=== PATIENT | female | born 1955 | race Caucasian/White ===

== ENCOUNTER 2017-03-18 12:50 | Emergency (ER) | payer BC ==
--- NOTE | 2017-03-18 14:40 | ED CLINICAL REPORT ---
Clinical Report - Physicians/Mid Levels [facility] [address] [place] [address] 03/18/2017 12:51 Patient: SIMA HAMILTON Time Seen: 13:30 Mar 18 2017. Arrived- By private vehicle. Historian- patient. HISTORY OF PRESENT ILLNESS Chief Complaint: FALL. Location of injuries- (right chest/ posterior). 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 Fell. The patient complains of mild pain. No blow to the head, neck pain or loss of consciousness. (Patient fell from a ladder about 7 days previously, now with pain to the right side after twisting and turning while placing the phone down. Patient reports she has had the same pain since the fall, however worsened today. Reports difficulty with taking large inspirations. Denies a cough or any new fevers. Patient reports taking aspirin for pain. Patient denies any LOC or any other injuries. She has been ambulatory. This is worsening of current pain, not new pain. No shortness of breath, fevers or cough. No palpitations.). REVIEW OF SYSTEMS No hearing loss, weakness or headache. She has had chest pain. All systems otherwise negative, except as recorded above. SOCIAL HISTORY Former smoker. Occasional alcohol use. No drug use. ADDITIONAL NOTES The nursing notes have been reviewed. PHYSICAL EXAM Vital Signs: 03/18/2017 12:57 BP: 125/86. HR: 88. RR: 18. O2 saturation: 98%. Temp: 98.1 F. Pain level now: 10. Appearance: Patient on a backboard. Alert. No acute distress. Eyes: Pupils equal, round and reactive to light. Neck: Painless ROM. Non-tender. No vertebral tenderness. CVS: Heart sounds normal. Pulses normal. Respiratory: No respiratory distress. Chest wall injury: moderate tenderness and small ecchymosis located in the central and posterior chest. No swelling. No abrasion. Back: No tenderness. ROM normal. No tenderness or vertebral point tenderness. LABS, X-RAYS, AND EKG Chest X-ray: (IMPRESSION: 1. There is an acute fracture the right posterior lateral ninth rib. 2. Mild left basilar atelectasis/volume loss (opposite side of rib fracture). 3. Findings as with PAULINA Moody. Electronically Final signed by:Kavin Villalba MD 03/18/2017 2:37:01 PM). PROGRESS AND PROCEDURES Course of Care: patient with good O2 sat in the emergency department. Very stable. All palpation. No distress. Signs of acute fracture, patient has a spirometer at home, urged to use his, strict return precautions. No other injuries. NO other injuries. 03/18/2017 12:57 BP: 125/86. HR: 88. RR: 18. O2 saturation: 98%. Temp: 98.1 F. Pain level now: 08/24. Patient is stable. Symptoms better. Patient/family counseled. Disposition: Discharged. CLINICAL IMPRESSION Single right rib fracture. INSTRUCTIONS Apply ice. Do not work for six days. Prescription Medications: Hydrocodone/APAP 5mg / 325mg: take 1 orally every 6 hours as needed for pain. Dispense twenty (20). No refill. Ibuprofen 800 mg tablets: take 1 tablet orally every 8 hours for 3 days, as needed for pain. Dispense ten (10). No refill. Follow-up: Follow up with your doctor Wednesday. (Electronically signed by Isidra Kimbrough P.A.-C 03/18/2017 14:56)
--- NOTE | 2017-03-18 14:40 | ED ORDER SUMMARY ---
..... Patient: SIMA HAMILTON OrderSheet [facility] VisitID: [id number] [address] [place] [address] 61y, F Registration Date/Time: 03/18/2017 ORDER SHEET Weight: 63.5 kg (stated) Allergies: Nitrofurantoin, Sulfa Antibiotics, Eggs or Egg-derived Products, Flagyl GENERAL ORDERS: Ribs Unilat w PA Chest Right Urgent (13:13 03/18/2017 Sonali Sebastian) (Ack 13:15 IJurca ER Tech1) (15:51 Flaco R.N.) MEDICATION ORDERS: Hydrocodone-APAP PO 5/325 mg (NOW, HIGH ALERT MEDICATION) (13:36 03/18/2017 Sonali Sebastian) (13:38 Latia R.N.) IV FLUIDS: ORDER SHEET NOTES: [Electronically signed by Isidra Kimbrough P.A.-C (14:56 03/18/2017)] [Electronically signed by Ayana Edwards R.N. (15:51 03/18/2017)] [Electronically locked/signed by Ayana Edwards R.N. (15:51 03/18/2017)]
--- NOTE | 2017-03-18 14:40 | ED NURSING NOTES ---
Clinical Report - Nurses [facility] [address] [place] [address] 03/18/2017 12:51 Patient: SIMA HAMILTON TRIAGE Triage time 12:57. Acuity: LEVEL 3. Chief Complaint: CHEST PAIN. Alert. --13:07 Ayana Edwards R.N. 12:57 03/18/17. BP: 125/86. HR: 88. RR: 18. O2 saturation: 98% on room air. Temp: 98.1 F (oral). Pain level now: 08/24. --13:07 Ayana Edwards R.N. Weight: 63.5 kg stated. Height/Length: 62 inches Per Patient. BMI: 25.6. --13:05 Ayana Edwards R.N. Medications None. --13:00 Ayana Edwards R.N. Medication/allergy information source: the patient. --13:07 Ayana Edwards R.N. Allergies Nitrofurantoin. Sulfa Antibiotics. --13:01 Ayana Edwards R.N. Eggs or Egg-derived Products. Flagyl. --13:01 Ayana Edwards R.N. History Arrived by private vehicle. Historian: patient. Accompanied by family. Primary physician (Crystal). Onset. (about 1 week ago). Describes the quality as sharp and (intermittent). Relates location as in the back (right lower ribs). Notes pain level as 10/10 on arrival and at maximum. Provoking / relieving factors: worsened by movement and deep breaths; relieved by rest. ( fell about a week ago, was getting better then today "twisted" to hang up the phone and now having severe right side back,). No difficulty breathing, sweating episodes, nausea or vomiting. PAST MEDICAL HX: The patient is post-menopausal. SOCIAL HX: Former smoker. Alcohol use; consumes wine occasionally. No drug use. FALL RISK ASSESSMENT: Fall risk assessment completed. No fall risk identified. FUNCTIONAL ASSESSMENT: Functional assessment: no impairments noted. LEARNING NEEDS ASSESSMENT: The learning needs assessment revealed no barriers. --13:07 Ayana Edwards R.N. PROBLEMS: Vertigo. --13:03 Ayana Edwards R.N. ADDITIONAL SURGERIES: Breast Biopsy. --13:03 Ayana Edwards R.N. Assessment GENERAL / NEURO / PSYCH: The patient is awake and alert, is oriented and cooperative and appears uncomfortable. She has good eye contact. RESPIRATORY: ( pain increases with deep breaths). SKIN: Skin is warm and dry. --13:07 Ayana Edwards R.N. Interventions ID and allergy band on patient. To treatment room. --13:07 Ayana Edwards R.N. PHYSICAL ASSESSMENT 13:00. Ambulatory to room. Patient gowned. GENERAL / NEURO / PSYCH: The patient is awake and alert, is oriented and cooperative and appears uncomfortable. She has good eye contact. RESPIRATORY: Respirations not labored. SKIN: Skin is warm and dry. --14:18 Ayana Edwards R.N. NURSING PROGRESS NOTES 13:38 03/18/2017 Hydrocodone-APAP (Hydrocodone-Acetaminophen) PO 5/325 mg Tablets 1 tab given. Confirmed 5 rights and sedative warning given. --13:38 Sheryl Painter R.N. 13:00. Patient gowned. Head of bed elevated. Call light placed in reach. Side rails up x 1. Bed placed in lowest position. Brakes of bed on. --14:18 Ayana Edwards R.N. 14:18 03/18/17. The patient is resting quietly. Overall patient status is the same- she states feels the same (tearful). RESPIRATORY: No respiratory distress. SKIN: Skin is warm and dry. --14:18 Ayana Edwards R.N. 14:50. The patient is calm and resting quietly. Overall patient status is the same- she states feels the same (waiting for RT to bring incentive spirometer for home use). RESPIRATORY: No respiratory distress. SKIN: Skin is warm and dry. --15:47 Ayana Edwards R.N. DISPOSITION / DISCHARGE Departure time: 1450. Condition at departure: stable. No learning barriers present. Discharge instructions provided and reviewed with the patient. Reviewed medication(s). Prescription(s) given to the patient. Work note given. Patient verbalized understanding. Written instructions provided in Chadian. The patient was discharged home and accompanied by family. She left the Emergency Department ambulatory and via private vehicle. FALL RISK ASSESSMENT: Fall risk assessment completed. No fall risk identified. --15:51 Ayana Edwards R.N. 14:50 03/18/17. BP: 127/84. HR: 82. RR: 18. O2 saturation: 99% on room air. Pain level now: 08/24. --15:51 Ayana Edwards R.N. Locked/Released at 03/18/2017 15:51 by Ayana Edwards R.N.
--- NOTE | 2017-03-18 14:40 | ED ORDER SUMMARY ---
..... Patient: SIMA HAMILTON OrderSheet [facility] VisitID: [id number] [address] [place] [address] 61y, F Registration Date/Time: 03/18/2017 ORDER SHEET Weight: 63.5 kg (stated) Allergies: Nitrofurantoin, Sulfa Antibiotics, Eggs or Egg-derived Products, Flagyl GENERAL ORDERS: Ribs Unilat w PA Chest Right Urgent (13:13 03/18/2017 Sonali Sebastian) (Ack 13:15 IJurca ER Tech1) (15:51 Flaco R.N.) MEDICATION ORDERS: Hydrocodone-APAP PO 5/325 mg (NOW, HIGH ALERT MEDICATION) (13:36 03/18/2017 Sonali Sebastian) (13:38 Latia R.N.) IV FLUIDS: ORDER SHEET NOTES: [Electronically signed by Isidra Kimbrough P.A.-C (14:56 03/18/2017)] [Electronically signed by Ayana Edwards R.N. (15:51 03/18/2017)] [Electronically locked/signed by Ayana Edwards R.N. (15:51 03/18/2017)]
--- NOTE | 2017-03-18 14:40 | ED CLINICAL REPORT ---
Clinical Report - Physicians/Mid Levels [facility] [address] [place] [address] 03/18/2017 12:51 Patient: SIMA HAMILTON Time Seen: 13:30 Mar 18 2017. Arrived- By private vehicle. Historian- patient. HISTORY OF PRESENT ILLNESS Chief Complaint: FALL. Location of injuries- (right chest/ posterior). 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 The patient complains of mild pain. No blow to the head, neck pain or loss of consciousness. (Patient fell from a ladder about 7 days previously, now with pain to the right side after twisting and turning while placing the phone down. Patient reports she has had the same pain since the fall, however worsened today. Reports difficulty with taking large inspirations. Denies a cough or any new fevers. Patient reports taking aspirin for pain. Patient denies any LOC or any other injuries. She has been ambulatory. This is worsening of current pain, not new pain. No shortness of breath, fevers or cough. No palpitations.). REVIEW OF SYSTEMS No hearing loss, weakness or headache. She has had chest pain. All systems otherwise negative, except as recorded above. SOCIAL HISTORY Former smoker. Occasional alcohol use. No drug use. ADDITIONAL NOTES The nursing notes have been reviewed. PHYSICAL EXAM Vital Signs: 03/18/2017 12:57 BP: 125/86. HR: 88. RR: 18. O2 saturation: 98%. Temp: 98.1 F. Pain level now: 10. Appearance: Patient on a backboard. Alert. No acute distress. Eyes: Pupils equal, round and reactive to light. Neck: Painless ROM. Non-tender. No vertebral tenderness. CVS: Heart sounds normal. Pulses normal. Respiratory: No respiratory distress. Chest wall injury: moderate tenderness and small ecchymosis located in the central and posterior chest. No swelling. No abrasion. Back: No tenderness. ROM normal. No tenderness or vertebral point tenderness. LABS, X-RAYS, AND EKG Chest X-ray: (IMPRESSION: 1. There is an acute fracture the right posterior lateral ninth rib. 2. Mild left basilar atelectasis/volume loss (opposite side of rib fracture). 3. Findings as with PAULINA Moody. Electronically Final signed by:Kavin Villalba MD 03/18/2017 2:37:01 PM). PROGRESS AND PROCEDURES Course of Care: patient with good O2 sat in the emergency department. Very stable. All palpation. No distress. Signs of acute fracture, patient has a spirometer at home, urged to use his, strict return precautions. No other injuries. NO other injuries. 03/18/2017 12:57 BP: 125/86. HR: 88. RR: 18. O2 saturation: 98%. Temp: 98.1 F. Pain level now: 08/24. Patient is stable. Symptoms better. Patient/family counseled. Disposition: Discharged. CLINICAL IMPRESSION Single right rib fracture. INSTRUCTIONS Apply ice. Do not work for six days. Prescription Medications: Hydrocodone/APAP 5mg / 325mg: take 1 orally every 6 hours as needed for pain. Dispense twenty (20). No refill. Ibuprofen 800 mg tablets: take 1 tablet orally every 8 hours for 3 days, as needed for pain. Dispense ten (10). No refill. Follow-up: Follow up with your doctor Wednesday. (Electronically signed by Isidra Kimbrough P.A.-C 03/18/2017 14:56)
--- NOTE | 2017-03-18 14:41 | DIAGNOSTIC IMAGING REPORT ---
PROCEDURE: XR RIBS UNILAT W/PA CHEST-RT INDICATION: Right rib pain after left injury. TECHNIQUE: Two views of the right ribs with single PA view chest. COMPARISON: None. FINDINGS: RIGHT RIBS: There is an acute minimally displaced fracture of the right posterior lateral right ninth rib. The rest the osseous structures are normal. CHEST: There is mild left basilar volume loss (opposite side of the rib fracture). Right lung is clear. No evidence of pneumothorax. Heart mediastinum are normal. The rest of the osseous thorax is normal. IMPRESSION: 1. There is an acute fracture the right posterior lateral ninth rib. 2. Mild left basilar atelectasis/volume loss (opposite side of rib fracture). 3. Findings as with Nicole Kimbrough PAC.
--- NOTE | 2017-03-18 15:51 | ED MAR SUMMARY ---
..... Medication Administration Record [facility] [address] [place] [address] Patient: SIMA HAMILTON Visit ID: [id number] 61y, F Weight: 63.5 kg Height/Length: 62 in BMI: 25.6 ALLERGIES: Eggs or Egg-derived Products, Flagyl, Sulfa Antibiotics, Nitrofurantoin Given 13:38 03/18/2017 Sheryl Painter R.N. Medication Administered: HYDROCODONE-APAP [PO] (HYDROCODONE-ACETAMINOPHEN), Dose: 1 tab 5/325 mg Tablets PO. Medication Ordered: Hydrocodone-APAP PO 5/325 mg (NOW, HIGH ALERT MEDICATION).
--- NOTE | 2017-03-18 15:51 | ED MAR SUMMARY ---
..... Medication Administration Record [facility] [address] [place] [address] Patient: SIMA HAMILTON Visit ID: [id number] 61y, F Weight: 63.5 kg Height/Length: 62 in BMI: 25.6 ALLERGIES: Eggs or Egg-derived Products, Flagyl, Sulfa Antibiotics, Nitrofurantoin Given 13:38 03/18/2017 Sheryl Painter R.N. Medication Administered: HYDROCODONE-APAP [PO] (HYDROCODONE-ACETAMINOPHEN), Dose: 1 tab 5/325 mg Tablets PO. Medication Ordered: Hydrocodone-APAP PO 5/325 mg (NOW, HIGH ALERT MEDICATION).
--- NOTE | 2017-03-18 15:51 | ED MED RECONCILIATION SUMMARY ---
Patient: SIMA HAMILTON Medication Reconciliation Report [facility] VisitID: [id number] [address] [place] [address] 61y, F Registration Date/Time: 03/18/2017 Weight: 63.5 kg Height/Length: 62 in. BMI: 25.6 ALLERGIES: Eggs or Egg-derived Products, Flagyl, Nitrofurantoin, Sulfa Antibiotics The patient's Home Medications are listed below: NONE. The source(s) of the original Home Medication information: patient The following Medications were given to the patient in the Emergency Department: Hydrocodone-APAP [PO] PO 1 tab, administered: 03/18/2017 1:38:00 PM The following Medications were prescribed to the patient: Hydrocodone/APAP 5mg / 325mg: take 1 orally every 6 hours as needed for pain. Dispense twenty (20). No refill. -- Isidra Kimbrough, P.A.-C Ibuprofen 800 mg tablets: take 1 tablet orally every 8 hours for 3 days, as needed for pain. Dispense ten (10). No refill. -- Isidra Kimbrough, P.A.-C
--- NOTE | 2017-03-18 15:51 | ED MED RECONCILIATION SUMMARY ---
Patient: SIMA HAMILTON Medication Reconciliation Report [facility] VisitID: [id number] [address] [place] [address] 61y, F Registration Date/Time: 03/18/2017 Weight: 63.5 kg Height/Length: 62 in. BMI: 25.6 ALLERGIES: Eggs or Egg-derived Products, Flagyl, Nitrofurantoin, Sulfa Antibiotics The patient's Home Medications are listed below: NONE. The source(s) of the original Home Medication information: patient The following Medications were given to the patient in the Emergency Department: Hydrocodone-APAP [PO] PO 1 tab, administered: 03/18/2017 1:38:00 PM The following Medications were prescribed to the patient: Hydrocodone/APAP 5mg / 325mg: take 1 orally every 6 hours as needed for pain. Dispense twenty (20). No refill. -- Isidra Kimbrough, P.A.-C Ibuprofen 800 mg tablets: take 1 tablet orally every 8 hours for 3 days, as needed for pain. Dispense ten (10). No refill. -- Isidra Kimbrough, P.A.-C
--- NOTE | 2017-03-18 15:51 | ED DISCHARGE INSTRUCTIONS ---
Patient: SIMA HAMILTON General Instructions [facility] VisitID: [id number] [place] [address] 61y, F Registration Date/Time: 03/18/2017 Single right rib fracture. INSTRUCTIONS Apply ice. Do not work for six days. Prescription Medications: Hydrocodone/APAP 5mg / 325mg: take 1 orally every 6 hours as needed for pain. Dispense twenty (20). No refill. Ibuprofen 800 mg tablets: take 1 tablet orally every 8 hours for 3 days, as needed for pain. Dispense ten (10). No refill. Follow-up: Follow up with your doctor Wednesday. ADDITIONAL INFORMATION Rib Fracture You have a fracture (break) of one or more ribs. Rib fractures do not require a cast like other bones. They will heal by themselves in about 4-6 weeks. The first 3-4 weeks will be the most painful because deep breathing, coughing or changing position from sitting to lying down, may cause the broken ends to move slightly. Home Care: Rest. You should not be doing any heavy lifting or strenuous exertion until the pain goes away. Because it hurts to breathe when you have a broken rib, there is risk of getting pneumonia from poor airflow through your lungs. To prevent this: Take four very deep breaths at least four times a day (exhale through pursed lips as if you are blowing up a balloon). If an "incentive spirometer" (breathing exercise device) was given to you, use it at least four times a day, or as directed. Apply an ice pack (ice cubes in a plastic bag, wrapped in a towel) over the injured area for 20 minutes every 1-2 hours the first day. Continue with ice packs 3-4 times a day for the next two days, then as needed for the relief of pain and swelling. You may use acetaminophen (Tylenol) or ibuprofen (Motrin, Advil) to control pain, unless another pain medicine was prescribed. [NOTE: If you have chronic liver or kidney disease or ever had a stomach ulcer or GI bleeding, talk with your doctor before using these medicines.] If your pain is not controlled by the treatment given, contact your doctor. Sometimes a stronger pain medicine may be needed. A nerve block (numbing the nerve between the ribs) can be performed in case of severe pain. Follow Up with your doctor during the next week, or as advised. Rarely, a broken rib will cause complications within the first few days that may not be evident during your initial exam (such as, collapsed lung, bleeding around the lung or into the abdomen, or pneumonia). Therefore, watch for the signs below. [NOTE: If x-rays were taken, they will be reviewed by a radiologist. You will be notified of any new findings that may affect your care.] Get Prompt Medical Attention if any of the following occur: Shortness of breath Increasing chest pain with breathing Dizziness, weakness or fainting New or worsening abdominal pain Fever of 100.4F (38C) or higher, or as directed by your healthcare provider Congested cough Hydrocodone Bitartrate, Acetaminophen Oral tablet What is this medicine? ACETAMINOPHEN; HYDROCODONE (a set a CHIKA eusebio fen; josué droe KOE done) is a pain reliever. It is used to treat mild to moderate pain. How should I use this medicine? Take this medicine by mouth. Swallow it with a full glass of water. Follow the directions on the prescription label. If the medicine upsets your stomach, take the medicine with food or milk. Do not take more than you are told to take. Talk to your shrimp peeling machine tender regarding the use of this medicine in children. This medicine is not approved for use in children. What side effects may I notice from receiving this medicine? Side effects that you should report to your doctor or health customer care representative as soon as possible: allergic reactions like skin rash, itching or hives, swelling of the face, lips, or tongue breathing problems confusion feeling faint or lightheaded, falls stomach pain yellowing of the eyes or skin Side effects that usually do not require medical attention (report to your doctor or health customer care representative if they continue or are bothersome): nausea, vomiting stomach upset What may interact with this medicine? alcohol antihistamines isoniazid medicines for depression, anxiety, or psychotic disturbances medicines for sleep muscle relaxants naltrexone narcotic medicines (opiates) for pain phenobarbital ritonavir tramadol What if I miss a dose? If you miss a dose, take it as soon as you can. If it is almost time for your next dose, take only that dose. Do not take double or extra doses. Where should I keep my medicine? Keep out of the reach of children. This medicine can be abused. Keep your medicine in a safe place to protect it from theft. Do not share this medicine with anyone. Selling or giving away this medicine is dangerous and against the law. Store at room temperature between 15 and 30 degrees C (59 and 86 degrees F). Protect from light. Keep container tightly closed. Throw away any unused medicine after the expiration date. Discard unused medicine and used packaging carefully. Pets and children can be harmed if they find used or lost packages. What should I tell my health care provider before I take this medicine? They need to know if you have any of these conditions: brain tumor Crohn's disease, inflammatory bowel disease, or ulcerative colitis drink more than 3 alcohol-containing drinks per day drug abuse or addiction head injury heart or circulation problems kidney disease or problems going to the bathroom liver disease lung disease, asthma, or breathing problems an unusual or allergic reaction to acetaminophen, hydrocodone, other opioid analgesics, other medicines, foods, dyes, or preservatives or trying to get breast-feeding What should I watch for while using this medicine? Tell your doctor or health customer care representative if your pain does not go away, if it gets worse, or if you have new or a different type of pain. You may develop tolerance to the medicine. Tolerance means that you will need a higher dose of the medicine for pain relief. Tolerance is normal and is expected if you take the medicine for a long time. Do not suddenly stop taking your medicine because you may develop a severe reaction. Your body becomes used to the medicine. This does NOT mean you are addicted. Addiction is a behavior related to getting and using a drug for a non-medical reason. If you have pain, you have a medical reason to take pain medicine. Your doctor will tell you how much medicine to take. If your doctor wants you to stop the medicine, the dose will be slowly lowered over time to avoid any side effects. You may get drowsy or dizzy when you first start taking the medicine or change doses. Do not drive, use machinery, or do anything that may be dangerous until you know how the medicine affects you. Stand or sit up slowly. There are different types of narcotic medicines (opiates) for pain. If you take more than one type at the same time, you may have more side effects. Give your health care provider a list of all medicines you use. Your doctor will tell you how much medicine to take. Do not take more medicine than directed. Call emergency for help if you have problems breathing. The medicine will cause constipation. Try to have a bowel movement at least every 2 to 3 days. If you do not have a bowel movement for 3 days, call your doctor or health customer care representative. Too much acetaminophen can be very dangerous. Do not take Tylenol (acetaminophen) or medicines that contain acetaminophen with this medicine. Many non-prescription medicines contain acetaminophen. Always read the labels carefully. You have been given the following additional information: Fracture, Rib Hydrocodone Bitartrate, Acetaminophen Oral tablet Do not work for six days. (Electronically signed by Isidra Kimbrough P.A.-C 03/18/2017 14:56)
--- NOTE | 2017-03-18 15:51 | ED DISCHARGE INSTRUCTIONS ---
Patient: SIMA HAMILTON General Instructions [facility] VisitID: [id number] [place] [address] 61y, F Registration Date/Time: 03/18/2017 Single right rib fracture. INSTRUCTIONS Apply ice. Do not work for six days. Prescription Medications: Hydrocodone/APAP 5mg / 325mg: take 1 orally every 6 hours as needed for pain. Dispense twenty (20). No refill. Ibuprofen 800 mg tablets: take 1 tablet orally every 8 hours for 3 days, as needed for pain. Dispense ten (10). No refill. Follow-up: Follow up with your doctor Wednesday. ADDITIONAL INFORMATION Rib Fracture You have a fracture (break) of one or more ribs. Rib fractures do not require a cast like other bones. They will heal by themselves in about 4-6 weeks. The first 3-4 weeks will be the most painful because deep breathing, coughing or changing position from sitting to lying down, may cause the broken ends to move slightly. Home Care: Rest. You should not be doing any heavy lifting or strenuous exertion until the pain goes away. Because it hurts to breathe when you have a broken rib, there is risk of getting pneumonia from poor airflow through your lungs. To prevent this: Take four very deep breaths at least four times a day (exhale through pursed lips as if you are blowing up a balloon). If an "incentive spirometer" (breathing exercise device) was given to you, use it at least four times a day, or as directed. Apply an ice pack (ice cubes in a plastic bag, wrapped in a towel) over the injured area for 20 minutes every 1-2 hours the first day. Continue with ice packs 3-4 times a day for the next two days, then as needed for the relief of pain and swelling. You may use acetaminophen (Tylenol) or ibuprofen (Motrin, Advil) to control pain, unless another pain medicine was prescribed. [NOTE: If you have chronic liver or kidney disease or ever had a stomach ulcer or GI bleeding, talk with your doctor before using these medicines.] If your pain is not controlled by the treatment given, contact your doctor. Sometimes a stronger pain medicine may be needed. A nerve block (numbing the nerve between the ribs) can be performed in case of severe pain. Follow Up with your doctor during the next week, or as advised. Rarely, a broken rib will cause complications within the first few days that may not be evident during your initial exam (such as, collapsed lung, bleeding around the lung or into the abdomen, or pneumonia). Therefore, watch for the signs below. [NOTE: If x-rays were taken, they will be reviewed by a radiologist. You will be notified of any new findings that may affect your care.] Get Prompt Medical Attention if any of the following occur: Shortness of breath Increasing chest pain with breathing Dizziness, weakness or fainting New or worsening abdominal pain Fever of 100.4F (38C) or higher, or as directed by your healthcare provider Congested cough Hydrocodone Bitartrate, Acetaminophen Oral tablet What is this medicine? ACETAMINOPHEN; HYDROCODONE (a set a CHIKA eusebio fen; josué droe KOE done) is a pain reliever. It is used to treat mild to moderate pain. How should I use this medicine? Take this medicine by mouth. Swallow it with a full glass of water. Follow the directions on the prescription label. If the medicine upsets your stomach, take the medicine with food or milk. Do not take more than you are told to take. Talk to your general surgeon regarding the use of this medicine in children. This medicine is not approved for use in children. What side effects may I notice from receiving this medicine? Side effects that you should report to your doctor or health acute care surgeon as soon as possible: allergic reactions like skin rash, itching or hives, swelling of the face, lips, or tongue breathing problems confusion feeling faint or lightheaded, falls stomach pain yellowing of the eyes or skin Side effects that usually do not require medical attention (report to your doctor or health acute care surgeon if they continue or are bothersome): nausea, vomiting stomach upset What may interact with this medicine? alcohol antihistamines isoniazid medicines for depression, anxiety, or psychotic disturbances medicines for sleep muscle relaxants naltrexone narcotic medicines (opiates) for pain phenobarbital ritonavir tramadol What if I miss a dose? If you miss a dose, take it as soon as you can. If it is almost time for your next dose, take only that dose. Do not take double or extra doses. Where should I keep my medicine? Keep out of the reach of children. This medicine can be abused. Keep your medicine in a safe place to protect it from theft. Do not share this medicine with anyone. Selling or giving away this medicine is dangerous and against the law. Store at room temperature between 15 and 30 degrees C (59 and 86 degrees F). Protect from light. Keep container tightly closed. Throw away any unused medicine after the expiration date. Discard unused medicine and used packaging carefully. Pets and children can be harmed if they find used or lost packages. What should I tell my health care provider before I take this medicine? They need to know if you have any of these conditions: brain tumor Crohn's disease, inflammatory bowel disease, or ulcerative colitis drink more than 3 alcohol-containing drinks per day drug abuse or addiction head injury heart or circulation problems kidney disease or problems going to the bathroom liver disease lung disease, asthma, or breathing problems an unusual or allergic reaction to acetaminophen, hydrocodone, other opioid analgesics, other medicines, foods, dyes, or preservatives or trying to get breast-feeding What should I watch for while using this medicine? Tell your doctor or health acute care surgeon if your pain does not go away, if it gets worse, or if you have new or a different type of pain. You may develop tolerance to the medicine. Tolerance means that you will need a higher dose of the medicine for pain relief. Tolerance is normal and is expected if you take the medicine for a long time. Do not suddenly stop taking your medicine because you may develop a severe reaction. Your body becomes used to the medicine. This does NOT mean you are addicted. Addiction is a behavior related to getting and using a drug for a non-medical reason. If you have pain, you have a medical reason to take pain medicine. Your doctor will tell you how much medicine to take. If your doctor wants you to stop the medicine, the dose will be slowly lowered over time to avoid any side effects. You may get drowsy or dizzy when you first start taking the medicine or change doses. Do not drive, use machinery, or do anything that may be dangerous until you know how the medicine affects you. Stand or sit up slowly. There are different types of narcotic medicines (opiates) for pain. If you take more than one type at the same time, you may have more side effects. Give your health care provider a list of all medicines you use. Your doctor will tell you how much medicine to take. Do not take more medicine than directed. Call emergency for help if you have problems breathing. The medicine will cause constipation. Try to have a bowel movement at least every 2 to 3 days. If you do not have a bowel movement for 3 days, call your doctor or health acute care surgeon. Too much acetaminophen can be very dangerous. Do not take Tylenol (acetaminophen) or medicines that contain acetaminophen with this medicine. Many non-prescription medicines contain acetaminophen. Always read the labels carefully. You have been given the following additional information: Fracture, Rib Hydrocodone Bitartrate, Acetaminophen Oral tablet Do not work for six days. (Electronically signed by Isidra Kimbrough P.A.-C 03/18/2017 14:56)
== END 2017-03-18 14:50 | disposition home or self-care (01) ==
LOC: ED SRH 12:50
DX: S22.31XA Fracture of one rib, right side, initial encounter for closed fracture (principal); W11.XXXA Fall on and from ladder, initial encounter; Y93.9 Activity, unspecified; Y92.009 Unspecified place in unspecified non-institutional (private) residence as the place of occurrence of the external cause; Y99.9 Unspecified external cause status